=== PATIENT | female | born 1940 | race Caucasian/White ===

== ENCOUNTER 2021-03-04 08:38 | Inpatient (IN) | payer OTHER ==
[~2021-03-04] VITALS: Ht 152.4 cm; Wt 58.5 kg
[2021-03-04] MEDS ORDERED: CYMBALTA60 MG PO (11:47)
[2021-03-04] MEDS ORDERED: ZOCOR40 MG PO (11:49)
[2021-03-04] MEDS ORDERED: RAMIPRIL1.25 MG PO (11:51)
[2021-03-04] MEDS ORDERED: QUALITY CHOICE81 M1 PO (11:53)
[2021-03-04] MEDS ORDERED: CALCIUM500 M1 PO (11:56)
[2021-03-04] MEDS ORDERED: CARBIDOPA-LEVO1 EAC5 PO (12:04)
[2021-03-04] MEDS ORDERED: KLONOPIN0.5 MG PO ×2 (12:05→12:07)
[2021-03-04] MEDS ORDERED: IBU800 M1 PO (12:08)
[2021-03-04] MEDS ORDERED: MELATONIN3 MG PO (12:09)
[2021-03-04] MEDS ORDERED: PROTONIX40 MG PO (12:11)
[2021-03-04] MEDS ORDERED: PROPRANOLOL HCL80 M1 PO (12:14)
[2021-03-04] MEDS ORDERED: RISPERDAL0.5 MG PO (12:47)
[2021-03-04 20:00] VITALS: BP 128/88
[2021-03-05 06:14] LABS: BASO # 0.1 10*3/uL (0.0-0.1); BASO % 0.6 % (0.0-1.0); EOS # 0.3 10*3/uL (0.0-0.4); EOS % 3.6 % (1.0-4.0); HEMATOCRIT 35.2 % (37.0-47.0); LYMPH # 2.1 10*3/uL (1.3-4.4); LYMPH % 26.9 % (27.0-41.0); MEAN CELL VOLUME 93.6 fl (81.0-99.0); MEAN CORPUSCULAR HGB 30.1 pg (27.0-31.0); MEAN CORPUSCULAR HGB CONC 32.1 g/dl (33.0-37.0); MEAN PLATELET VOLUME 10.2 fl (9.6-12.3); MONO # 0.8 10*3/uL (0.1-1.0); MONO % 9.6 % (3.0-9.0); NEUT # 4.6 10*3/uL (2.3-7.9); PLATELET COUNT AUTOMATED 279 10*3/uL (130-400); RED BLOOD COUNT 3.76 10*6/uL (4.10-5.10); RED CELL DISTRI WIDTH 14.3 % (0-14.5); WHITE BLOOD COUNT 7.8 10*3/uL (4.8-10.8)
[2021-03-05 06:34] LABS: BUN 16 mg/dl (7-24); CHLORIDE 105 mmol/L (98-107); POTASSIUM 3.8 mmol/L (3.5-5.1); SODIUM 141 mmol/L (136-145)
[2021-03-05 06:47] LABS: CHOLESTEROL 156 mg/dL (<200); CREATININE 0.68 mg/dL (0.55-1.02); LDL CHOLESTEROL 86 mg/dL (9-159); TRIGLYCERIDES 74 mg/dl (<150)
[2021-03-05 07:06] LABS: VITAMIN D, 25-HYDROXY 38.6 ng/mL (30-100)
[2021-03-05 08:00] VITALS: BP 140/75
[2021-03-05 19:48] VITALS: BP 109/59
[2021-03-06 08:02] VITALS: BP 121/81
[2021-03-06 16:46] LABS: BILIRUBIN Negative (Negative); BLOOD Negative (Negative); CLARITY Turbid (Clear); COLOR Yellow (Yellow); GLUCOSE Negative (Negative); KETONE Negative (Negative); LEUKO ESTERASE Trace (Negative); NITRITE Negative (Negative)
[2021-03-06 17:25] LABS: BACTERIA 4+; EPITHELIAL CELLS 0-2; RBC 0-2 rbc/hpf (0-2); TRIP PHOS CRYSTALS 1+; WBC 16-20 wbc/hpf (0-5)
[2021-03-06 20:00] VITALS: BP 110/82
[2021-03-07 07:42] VITALS: BP 122/47
[2021-03-07 20:00] VITALS: BP 110/69
[2021-03-08 07:45] VITALS: BP 124/51
[2021-03-08 20:00] VITALS: BP 108/79
[2021-03-09 07:34] VITALS: BP 136/81
[2021-03-09 20:47] VITALS: BP 104/58
[2021-03-10 07:30] VITALS: BP 122/61
[2021-03-10 19:05] VITALS: BP 116/66
[2021-03-11 07:42] VITALS: BP 132/73
[2021-03-11 20:00] VITALS: BP 130/58
[2021-03-12 08:00] VITALS: BP 110/67
[2021-03-12 17:16] VITALS: BP 142/65
[2021-03-13 07:25] VITALS: BP 131/69
[2021-03-14 07:52] VITALS: BP 130/60
[2021-03-14 20:00] VITALS: BP 121/80
[2021-03-15 07:35] VITALS: BP 93/57
[2021-03-15 09:30] VITALS: BP 128/62
[2021-03-15 20:00] VITALS: BP 142/70
[2021-03-16 08:00] VITALS: BP 136/84
[2021-03-16 20:00] VITALS: BP 115/83
[2021-03-17 06:45] LABS: BASO # 0.1 10*3/uL (0.0-0.1); BASO % 0.8 % (0.0-1.0); EOS # 0.4 10*3/uL (0.0-0.4); HEMATOCRIT 31.1 % (37.0-47.0); LYMPH # 2.1 10*3/uL (1.3-4.4); LYMPH % 22.9 % (27.0-41.0); MEAN CELL VOLUME 95.1 fl (81.0-99.0); MEAN CORPUSCULAR HGB 29.4 pg (27.0-31.0); MEAN CORPUSCULAR HGB CONC 30.9 g/dl (33.0-37.0); MEAN PLATELET VOLUME 10.1 fl (9.6-12.3); MONO # 0.8 10*3/uL (0.1-1.0); MONO % 8.5 % (3.0-9.0); NEUT # 5.8 10*3/uL (2.3-7.9); PLATELET COUNT AUTOMATED 433 10*3/uL (130-400); RED BLOOD COUNT 3.27 10*6/uL (4.10-5.10); RED CELL DISTRI WIDTH 14.1 % (0-14.5); WHITE BLOOD COUNT 9.2 10*3/uL (4.8-10.8)
[2021-03-17 07:05] LABS: BUN 20 mg/dl (7-24); CHLORIDE 108 mmol/L (98-107); POTASSIUM 4.1 mmol/L (3.5-5.1); SGOT/AST 28 IU/L (3-35); SGPT/ALT 26 U/L (12-78); SODIUM 141 mmol/L (136-145)
[2021-03-17 07:07] LABS: ALKALINE PHOSPHATASE 86 U/L (45-117); TOTAL PROTEIN 6.5 gm/dL (6.4-8.2)
[2021-03-17 07:40] VITALS: BP 120/74
[2021-03-17] MEDS ORDERED: MEMANTINE HCL10 MG PO (09:47)
[2021-03-17] MEDS ORDERED: HOMEMED PO (09:47)
[2021-03-17] MEDS ORDERED: RIVASTIGMINE TAR6 M1 PO (09:47)
[2021-03-17] MEDS ORDERED: Sinemet 25 MG-100 MG PO (09:47)
[2021-03-17 20:00] VITALS: BP 134/76
[2021-03-18 08:01] VITALS: BP 109/49
[2021-03-18 20:00] VITALS: BP 150/88
[2021-03-19 08:00] VITALS: BP 123/62
[2021-03-19 20:00] VITALS: BP 104/51
[2021-03-20 08:00] VITALS: BP 95/71
[2021-03-20 20:30] VITALS: BP 106/70
[2021-03-21 08:00] VITALS: BP 106/54
[2021-03-21 20:00] VITALS: BP 129/72
[2021-03-22 08:00] VITALS: BP 128/64
== END 2021-03-22 12:28 | DRG 885 ==
LOC: 3N 08:38
PROVIDERS: Counselor Professional; ADMIT Psychiatry & Neurology Psychiatry; ATTEND Psychiatry & Neurology Psychiatry
DX: F33.9 Major depressive disorder, recurrent, unspecified (principal); E43 Unspecified severe protein-calorie malnutrition; G45.9 Transient cerebral ischemic attack, unspecified; F41.9 Anxiety disorder, unspecified; I25.10 Atherosclerotic heart disease of native coronary artery without angina pectoris; K21.9 Gastro-esophageal reflux disease without esophagitis; I10 Essential (primary) hypertension; Z20.822 Contact with and (suspected) exposure to COVID-19; G30.9 Alzheimer's disease, unspecified; F02.80 Dementia in other diseases classified elsewhere, unspecified severity, without behavioral disturbance, psychotic disturbance, mood disturbance, and anxiety; G20 Parkinson's disease; Z88.0 Allergy status to penicillin; Z88.5 Allergy status to narcotic agent; Z90.49 Acquired absence of other specified parts of digestive tract; Z90.710 Acquired absence of both cervix and uterus; Z98.891 History of uterine scar from previous surgery; Z96.652 Presence of left artificial knee joint